=== PATIENT | female | born 1980 | race African-American/Black ===

== ENCOUNTER 2017-03-24 11:45 | Observation (INO) | payer OTHER, MEDICAID ==
[~2017-03-24] VITALS: Ht 167.6 cm; Wt 81.6 kg
[~2017-03-24 11:45] MED LIST: Docusate Sodium PO; FS300 PO
[2017-03-24] MEDS ORDERED: SODIUM CHLORIDE 0.9% 1,000 ML IV ONE (13:00)
[2017-03-24 14:35] LABS: MEAN CORPUSCULAR HEMOGLOBIN 15.4 pg (28.0-32.0); MEAN CORPUSCULAR HGB CONC 27.5 g/dL (31.0-37.0); MEAN CORPUSCULAR VOLUME 56.2 fL (81.0-99.0); PLATELET 99 x1000/uL (130-400); RED BLOOD CELL COUNT 3.15 mill/uL (4.2-5.4); RED CELL DISTRIBUTION WIDTH 28.2 % (11.6-14.6); WHITE BLOOD COUNT 3.2 x1000/uL (4.5-11.0)
[2017-03-24 14:39] LABS: HEMOGLOBIN. 4.9 g/dL (12.0-16.0)
[2017-03-24 14:40] LABS: DIFFERENTIAL COMMENT 1; HEMATOCRIT. 17.7 % (36.0-48.0)
[2017-03-24 14:42] LABS: PARTIAL THROMBOPLASTIN TIME 25.6 sec (24.0-34.0); PROTHROMBIN TIME 10.2 sec
[2017-03-24 14:59] LABS: HCG SCREEN NEGATIVE
[2017-03-24 16:23] LABS: PLATELET ESTIMATE MARKEDLY DECREASED
[2017-03-24 16:24] LABS: HYPOCHROMASIA 3+
[2017-03-24] MEDS ORDERED: ONDANSETRON HCL 4MG/2ML VIAL IV PRN (21:15)
[2017-03-24] MEDS ORDERED: CLONIDINE 0.1MG TABLET PO PRN (21:15)
[2017-03-24] MEDS ORDERED: HYDROCODONE/ACETAMINOPHEN 5/325MG TABLET PO PRN (21:15)
[2017-03-24] MEDS ORDERED: ACETAMINOPHEN 325MG TABLET PO PRN (21:15)
[2017-03-24 22:58] LABS: CHLORIDE 109 mEq/L (98-107); INDEX HEMOLYSI 1 (1-3); INDEX ICTERIC 1 (1-4); INDEX LIPEMIC 1 (1-3)
[2017-03-24 23:03] LABS: ANION GAP 9; CALCIUM 7.6 mg/dL (8.5-10.1); CARBON DIOXIDE 28 mEq/L (21-32); UREA NITROGEN BLOOD 8 mg/dL (7-21); eGFR > 60 mL/min (>60)
[2017-03-25] VITALS (12 sets, daily range): BP systolic 103–126; BP diastolic 61–89
[2017-03-25 01:33] LABS: HEMATOCRIT 17.7 % (36.0-48.0); HEMOGLOBIN 5.2 g/dL (12.0-16.0)
[2017-03-25 07:16] LABS: MEAN CORPUSCULAR HGB CONC 27.7 g/dL (31.0-37.0); MEAN CORPUSCULAR VOLUME 61.2 fL (81.0-99.0); MEAN PLATELET VOLUME 8.4 fl (7.4-10.4); PLATELET 74 x1000/uL (130-400); RED BLOOD CELL COUNT 3.13 mill/uL (4.2-5.4); RED CELL DISTRIBUTION WIDTH 35.1 % (11.6-14.6)
[2017-03-25 07:40] LABS: T4 FREE 0.96 ng/dL (0.76-1.46); THYROID STIMULATING HORMONE 1.2 uIU/mL (0.36-3.74)
[2017-03-25 08:23] LABS: DIFFERENTIAL COMMENT 1
[2017-03-25 08:27] LABS: HEMOGLOBIN. 5.3 g/dL (12.0-16.0)
[2017-03-25 12:07] LABS: ANISOCYTOSIS 2+; PLATELET ESTIMATE SLIGHTLY DECREASED
[2017-03-25 12:08] LABS: HYPOCHROMASIA 2+
[2017-03-25 15:24] LABS: HEMATOCRIT 24.4 % (36.0-48.0); HEMOGLOBIN 7.6 g/dL (12.0-16.0)
[2017-03-27 09:44] LABS: HEMATOCRIT. 19.1 % (36.0-48.0)
== END 2017-03-25 19:06 | disposition home or self-care (01) ==
LOC: ER 13:01 → 5WST 23:14 → INTOOBSV 23:14
PROVIDERS: ADMIT Internal Medicine; ATTEND Internal Medicine
DX: D62 Acute posthemorrhagic anemia (principal); N92.0 Excessive and frequent menstruation with regular cycle; K62.5 Hemorrhage of anus and rectum; D69.6 Thrombocytopenia, unspecified
CPT/HCPCS: 36415; 36430; 76830; 76856; 80048; 80061; 84439; 84443; 84703; 85007; 85014; 85018; 85025; 85027; 85610; 85730; 86850; 86900; 86901; 86920; G0378; J7030; J7050; P9016

== ENCOUNTER 2019-07-04 11:35 | Inpatient (IN) | payer MEDICAID, OTHER ==
[~2019-07-04] VITALS: Ht 167.6 cm; Wt 84.1 kg
[2019-07-04] MEDS: SODIUM CHLORIDE 0.45% 1,000 ML IV SCH (01:34)
[~2019-07-04 11:35] MED LIST changes: +FERR325T23 PO; -FS300 PO
[2019-07-04 15:40] LABS: CLARITY URINE CLEAR (CLEAR); COLOR URINE YELLOW (YELLOW); KETONES URINE NEGATIVE (NEGATIVE); LEUKOCYTE ESTERASE URINE NEGATIVE (NEGATIVE); NITRITE URINE NEGATIVE (NEGATIVE); OCCULT BLOOD URINE 2+ (NEGATIVE); PH URINE 6.5 (4.5-8.0); PROTEIN URINE NEGATIVE (NEGATIVE); SPECIFIC GRAVITY URINE 1.019 (1.005-1.030); UROBILINOGEN URINE 0.2 E.U./dL (0.2-1.0)
[2019-07-04 15:41] LABS: CHLORIDE 109 mEq/L (98-107)
[2019-07-04 15:43] LABS: PROTHROMBIN TIME 10.4 sec (9.6-11.0)
[2019-07-04 15:48] LABS: HCG SCREEN NEGATIVE
[2019-07-04 17:49] LABS: MEAN CORPUSCULAR HEMOGLOBIN 15.2 pg (28.0-32.0); MEAN CORPUSCULAR VOLUME 56.4 fL (81.0-99.0); MEAN PLATELET VOLUME 8.2 fl (7.4-10.4); RED BLOOD CELL COUNT 2.94 mill/uL (4.2-5.4)
[2019-07-04 17:55] LABS: PLATELET 1016 x1000/uL (130-400)
[2019-07-04 17:57] LABS: HEMATOCRIT. 16.6 % (36.0-48.0); HEMOGLOBIN. 4.5 g/dL (12.0-16.0)
[2019-07-04 19:20] LABS: PLATELET ESTIMATE MARKEDLY INCREASED
[2019-07-04] MEDS ORDERED: MAGNESIUM/ALUMINUM HYDROXIDE/SIMETHICONE 30ML UDC PO PRN (20:15)
[2019-07-04] MEDS ORDERED: IPRATROPIUM/ALBUTEROL 0.5-3(2.5)MG/3ML NEB INH PRN (20:15)
[2019-07-04] MEDS ORDERED: ONDANSETRON HCL 4MG/2ML INJ IV PRN (20:15)
[2019-07-04] MEDS ORDERED: NA PHOS,M-B/NA PHOS,DI-BA ENEMA 118ML PR PRN (20:15)
[2019-07-04] MEDS ORDERED: HYDROMORPHONE HCL/PF 2MG/ML CPJ IV PRN (20:15)
[2019-07-04] MEDS ORDERED: GUAIFENESIN 200MG/10ML SUGAR FREE UDC PO PRN (20:15)
[2019-07-04] MEDS ORDERED: DOCUSATE SODIUM 100MG CAPSULE PO PRN (20:15)
[2019-07-04] MEDS ORDERED: CLONIDINE 0.1MG TABLET PO PRN (20:15)
[2019-07-04] MEDS ORDERED: DIPHENHYDRAMINE 50MG/ML VIAL IV PRN (20:15)
[2019-07-04] MEDS ORDERED: LORAZEPAM 2MG/ML CPJ IV PRN (20:15)
[2019-07-04] MEDS ORDERED: ACETAMINOPHEN 325MG TABLET PO ONE (20:45)
[2019-07-04 23:20] LABS: CHLORIDE 110 mEq/L (98-107)
[2019-07-05] VITALS (9 sets, daily range): BP systolic 98–112; BP diastolic 35–63
[2019-07-05] MEDS: ACETAMINOPHEN 325MG TABLET PO PRN ×2 (01:51→08:31)
[2019-07-05] MEDS ORDERED: DOCU250C14 PO (04:52)
[2019-07-05 11:29] LABS: MEAN CORPUSCULAR HEMOGLOBIN 18.1 pg (28.0-32.0); MEAN CORPUSCULAR VOLUME 62.5 fL (81.0-99.0); MEAN PLATELET VOLUME 8.4 fl (7.4-10.4); PLATELET 965 x1000/uL (130-400); RED BLOOD CELL COUNT 3.32 mill/uL (4.2-5.4); RED CELL DISTRIBUTION WIDTH 41.3 % (11.6-14.6)
[2019-07-05 11:48] LABS: HEMATOCRIT. 20.8 % (36.0-48.0)
[2019-07-05 12:13] LABS: CHLORIDE 109 mEq/L (98-107)
[2019-07-05 12:24] LABS: LDL CHOLESTEROL 41 mg/dL (5-100)
[2019-07-05 12:26] LABS: HDL CHOLESTEROL 39 mg/dL (40-59)
[2019-07-05 12:34] LABS: PLATELET ESTIMATE MARKEDLY INCREASED
[2019-07-05] MEDS: HYDROCODONE/ACETAMINOPHEN 5/325MG TABLET PO PRN (18:28)
[2019-07-05] MEDS: SODIUM CHLORIDE 0.45% 1,000 ML IV SCH (18:29)
[2019-07-05 23:37] LABS: MEAN CORPUSCULAR HEMOGLOBIN 19.5 pg (28.0-32.0); MEAN CORPUSCULAR VOLUME 64.4 fL (81.0-99.0); MEAN PLATELET VOLUME 8.4 fl (7.4-10.4); PLATELET 944 x1000/uL (130-400); RED BLOOD CELL COUNT 3.41 mill/uL (4.2-5.4); RED CELL DISTRIBUTION WIDTH 42.9 % (11.6-14.6)
[2019-07-05 23:42] LABS: HEMOGLOBIN. 6.6 g/dL (12.0-16.0)
[2019-07-06] VITALS (10 sets, daily range): BP systolic 96–112; BP diastolic 42–68
[2019-07-06] MEDS: HYDROCODONE/ACETAMINOPHEN 5/325MG TABLET PO PRN ×2 (00:23→10:12)
[2019-07-06 00:57] LABS: NUCLEATED RED BLOOD CELLS 1 /100 WBC; PLATELET ESTIMATE MARKEDLY INCREASED
[2019-07-06] MEDS: SODIUM CHLORIDE 0.45% 1,000 ML IV SCH (04:29)
[2019-07-06 05:54] LABS: HEMATOCRIT. 25.8 % (36.0-48.0); HEMOGLOBIN. 7.7 g/dL (12.0-16.0); MEAN CORPUSCULAR HEMOGLOBIN 20.4 pg (28.0-32.0); MEAN CORPUSCULAR VOLUME 68.4 fL (81.0-99.0); MEAN PLATELET VOLUME 8.3 fl (7.4-10.4); PLATELET 909 x1000/uL (130-400); RED BLOOD CELL COUNT 3.77 mill/uL (4.2-5.4); RED CELL DISTRIBUTION WIDTH 43.2 % (11.6-14.6)
[2019-07-06 05:57] LABS: INR 1.1; PROTHROMBIN TIME 10.9 sec (9.6-11.0)
[2019-07-06] MEDS ORDERED: POTASSIUM CHLORIDE 20MEQ TABLET SR PO SCH (06:45)
[2019-07-06 09:21] LABS: PLATELET ESTIMATE MARKEDLY INCREASED
[2019-07-06 13:10] LABS: HEMATOCRIT 28.4 % (36.0-48.0); HEMOGLOBIN 8.3 g/dL (12.0-16.0); MEAN CORPUSCULAR HEMOGLOBIN 19.4 pg (28.0-32.0); MEAN CORPUSCULAR VOLUME 66.1 fL (81.0-99.0); RED BLOOD CELL COUNT 4.29 mill/uL (4.2-5.4); RED CELL DISTRIBUTION WIDTH 41.6 % (11.6-14.6)
[2019-07-06 13:16] LABS: CHLORIDE 109 mEq/L (98-107)
[2019-07-06] MEDS: ACETAMINOPHEN 325MG TABLET PO PRN (19:05)
[2019-07-06] MEDS ORDERED: MUPIROCIN 2% OINT 22GM NS SCH (21:00)
[2019-07-07 12:07] LABS: PLATELET 1041 x1000/uL (130-400)
== END 2019-07-06 20:33 | disposition home or self-care (01) | DRG 532 ==
LOC: ER 11:35 → 6WST 19:18 → EDBEDREQSVC 19:25 → EDBEDREQTM 19:25 → EDBEDREQ 19:25 → ENRESERV 07-05 03:25
PROVIDERS: ADMIT Internal Medicine; ATTEND Internal Medicine
PROC: 30233N1 Transfusion of Nonautologous Red Blood Cells into Peripheral Vein, Percutaneous Approach (ICD-10-PCS; principal; 2019-07-04)
DX: D25.0 Submucous leiomyoma of uterus (principal); D47.3 Essential (hemorrhagic) thrombocythemia; D64.9 Anemia, unspecified; F12.90 Cannabis use, unspecified, uncomplicated; I10 Essential (primary) hypertension; N92.1 Excessive and frequent menstruation with irregular cycle; N93.9 Abnormal uterine and vaginal bleeding, unspecified; N94.3 Premenstrual tension syndrome; Z79.899 Other long term (current) drug therapy
CPT/HCPCS: 36415; 76700; 76830; 76856; 80048; 80061; 81003; 84484; 84703; 85027; 85384; 86850; 86900; 86920; 93005; 99285; P9016

== ENCOUNTER 2025-10-29 06:40 | Emergency (ER) | payer MEDICAID, OTHER ==
[~2025-10-29] VITALS: Ht 167.6 cm; Wt 129.4 kg
[~2025-10-29 06:40] MED LIST changes: +DOCU250C14 PO; -Docusate Sodium PO
[2025-10-29 06:45] VITALS: O2SAT 99
[2025-10-29] MEDS: ACETAMINOPHEN 325MG TABLET PO ONE (07:52)
[2025-10-29] MEDS ORDERED: NAPR-681 PO (09:14)
[2025-10-29 09:19] VITALS: BP 121/80; PULSE 70; RESP 15; TEMP 36.9; O2SAT 99
== END 2025-10-29 09:22 | disposition home or self-care (01) ==
LOC: ER 06:40
DX: M25.561 Pain in right knee (principal); F12.90 Cannabis use, unspecified, uncomplicated; Z79.899 Other long term (current) drug therapy
CPT/HCPCS: 29505; 73560; 99283